=== PATIENT | female | born 1985 | race Caucasian/White ===

== ENCOUNTER 2018-04-02 01:10 | Inpatient (IN) | payer BC ==
[2018-04-02] MEDS ORDERED: Sodium Chloride 0.9% 10 ML Syringe FLUSH PRN (09:14)
[2018-04-02] MEDS ORDERED: Ondansetron 4 MG/2 ML SDV IVPUSH PRN (09:14)
[2018-04-02] MEDS ORDERED: Nalbuphine 20 MG/ML 1 ML Syringe IVPUSH PRN (09:14)
[2018-04-02] MEDS ORDERED: Lactated Ringers 1,000 ML IV SCH (09:15)
[2018-04-02] MEDS ORDERED: Oxytocin/Lactated Ringers 10 UNIT/1,000 ML BAG IV SCH ×2 (09:15→12:15)
--- NOTE | 2018-04-02 09:39 | PCM.HP ---
H&P History of Present Illness - General Date of Service: 04/02/18 Admit Problem/Dx: Admission Diagnosis/Problem Admission Diagnosis/Problem Induction of Labor Source of Information: Patient, Old Records History Limitations: Reports: No Limitations - History of Present Illness Initial Comments - Free Text/Narative: Lisy is a 32YO white female who presents today for an induction at 41 -3/7 wks gestation by LMP and U/S on 07/26/2017. Induction deemed medically necessary due to post-due status of the patient and concerns regarding large size of fetus, with intent to avoid section. U/S done on 01/15/18 showed "bilateral dilation" of renal pelvis, with recommended follow-up in 4 weeks, which patient declined. Patient blood type is B POS, antibody screen was negative. GBS NEG. GC/Chlamydia /HBV/Syphilis/HIV screens were all negative. Rubella immune. Tdap declined 01/02/2018. GDM screen declined 01/01/18 - Related Data Allergies/Adverse Reactions: Allergies Allergy/AdvReac Type Severity Reaction Status Date / Time No Known Allergies Allergy Verified 04/02/18 09:13 Home Medications: Home Meds Vits #93/Iron Fum/FA [ Formula Tablet] 1 tab PO DAILY 04/02/18 [History] Past Medical History HEENT History: Reports: None Cardiovascular History: Reports: None Respiratory History: Reports: None Gastrointestinal History: Reports: None Genitourinary History: Reports: None [employer] History: Reports: : 1 Para: 0 LMP (Approximate): - Past Surgical History HEENT Surgical History: Reports: Tonsillectomy Other Musculoskeletal Surgeries/Procedures:: right knee surgery Social & Family History - Family History Family Medical History: Noncontributory - Tobacco Use Smoking Status *Q: Never Smoker - Caffeine Use Caffeine Use: Reports: None H&P Review of Systems - Review of Systems: Review Of Systems: See Below General: Reports: No Symptoms HEENT: Reports: No Symptoms Pulmonary: Reports: No Symptoms Cardiovascular: Reports: No Symptoms Gastrointestinal: Reports: No Symptoms Genitourinary: Reports: No Symptoms Musculoskeletal: Reports: No Symptoms Skin: Reports: No Symptoms Psychiatric: Reports: No Symptoms Neurological: Reports: No Symptoms Hematologic/Lymphatic: Reports: No Symptoms Immunologic: Reports: No Symptoms Exam - Exam Exam: See Below - Vital Signs Vital Signs: Last Vital Signs Temp Pulse 88 04/02/18 08:32 Resp BP Pulse Ox Weight: 90.718 kg - Exam General: Alert, Oriented, 4 HEENT: Conjunctiva Clear, Hearing Intact, PERRLA Lungs: Clear to Auscultation, Normal Respiratory Effort Cardiovascular: Regular Rate, Regular Rhythm GI/Abdominal Exam: Normal Bowel Sounds (Female) Exam: Normal External Exam, Normal Bimanual Exam Extremities: Normal Inspection, Normal Range of Motion, Non-Tender, Normal Capillary Refill, Pedal Edema (minimal +1 edema on RLE, pt. states present even in non- state.) Skin: Warm, Dry, Intact Neuro Extensive - Mental Status: Alert, Oriented x3, Normal Mood/Affect, Normal Cognition Psychiatric: Alert, Anxious (Patient appears teary and disappointed re: induction, but understands and agrees that it is best course of action for both her and the baby's health.) - Patient Data Result Diagrams: 04/02/18 09:25 Problem List Initiated/Reviewed/Updated: No Orders Last 24hrs: Active Orders 24 hr Category Date Time Status Patient Status [ADT] Routine ADT 04/02/18 09:14 Active Activity as Tolerated [RC] PFP Care 04/02/18 09:14 Active Communication Order [RC] ASDIRECTED Care 04/02/18 09:14 Active Heart Tones [RC] ASDIRECTED Care 04/02/18 09:14 Active Non Stress Test [RC] PER UNIT ROUTINE Care 04/02/18 09:14 Active Notify Provider [RC] PFP Care 04/02/18 09:14 Active Notify Provider [RC] PRN Care 04/02/18 09:14 Active Peripheral IV Care [RC] . DIRECTED Care 04/02/18 09:14 Active Pump Management, Intrathecal [RC] ASDIRECTED Care 04/02/18 09:16 Active Urinary Catheter Assessment [RC] ASDIRECTED Care 04/02/18 09:14 Active Vital Signs [RC] PER UNIT ROUTINE Care 04/02/18 09:14 Active Regular Diet [DIET] Diet 04/02/18 Breakfast Active CBC WITH AUTO DIFF [HEME] Routine Lab 04/02/18 09:14 Ordered RAPID PLASMA REAGIN,RPR [CHEM] Routine Lab 04/02/18 09:14 Ordered Lactated Ringers [Ringers, Lactated] 1,000 ml Med 04/02/18 09:15 Ordered IV ASDIRECTED Nalbuphine [Nubain] Med 04/02/18 09:14 Ordered 10 mg IVPUSH Q2H PRN Ondansetron [Zofran] Med 04/02/18 09:14 Ordered 4 mg IVPUSH Q4H PRN Oxytocin/Lactated Ringers [Pitocin in LR 10 Units/1,000 Med 04/02/18 09:15 Ordered ML] 10 unit in 1,000 ml IV .CONTINUOUS Sodium Chloride 0.9% [Saline Flush] Med 04/02/18 09:14 Ordered 10 ml FLUSH ASDIRECTED PRN Electronic Heart Tones Ext w TOCO [WOMSER] Oth 04/02/18 09:14 Ordered Routine Electronic Heart Tones Internal [WOMSER] Per Unit Ot 04/02/18 09:14 Ordered Routine Peripheral IV Insertion Adult [OM.PC] Routine Ot 04/02/18 09:14 Ordered Resuscitation Status Routine Resus Stat 04/02/18 09:14 Ordered Medication Orders Lactated Ringer's (Ringers, Lactated) 1,000 mls @ 100 mls/hr IV ASDIRECTED ANÍBAL Oxytocin/Lactated Ringer's (Pitocin In Lr 10 Units/1,000 Ml) 10 unit in 1,000 mls @ 500 mls/hr IV .CONTINUOUS ANÍBAL Nalbuphine HCl (Nubain) 10 mg IVPUSH Q2H PRN PRN Reason: pain Ondansetron HCl (Zofran) 4 mg IVPUSH Q4H PRN PRN Reason: Nausea/Vomiting Sodium Chloride (Saline Flush) 10 ml FLUSH ASDIRECTED PRN PRN Reason: Keep Vein Open Assessment/Plan Comment:: ASSESSMENT Patient has extensive plan. Staff have counseled her on intentions to follow her wishes as closely as possible, and on plans to communicate any possible needs for deviation from the plan throughout labor. Patient is anxious and teary regarding need for induction, but understands and agrees that it is best for the well-being of both her and the fetus. Patient plans to breastfeed exclusively and the staff will support her decision. Plan to consult with pediatrics regarding previous U/S assessment of renal pelvis. PLAN 1. Induction of labor at 41-3/7 wks gestation 2. Consult pediatrics re: renal pelvis dilation and plan 3. Support patient plan to best of capability 4. Support decision
[2018-04-02] MEDS ORDERED: Lidocaine 1% 20 ML MDV INJECT ONE (20:14)
[2018-04-02] MEDS ORDERED: Lidocaine 1% 50 ML MDV INJECT ONE (20:30)
[2018-04-02] MEDS ORDERED: Lidocaine 1% 50 ML MDV ONE (23:33)
--- NOTE | 2018-04-03 01:54 | PCM.SN ---
- Free Text/Narrative Note: Delivery note: Lisy is a 32-year-old 1 now para 1001 white female at 41-4/7 weeks gestational age who was admitted yesterday for elective induction of labor or post dates. She was started on Pitocin, then had artificial rupture membranes. She did natural childbirth and had no pain medications during the course of labor. She progressed steadily and became complete at approximately 2345 hrs. on 04/02/2018. She pushed for approximately an hour and a half and delivered a viable, snider, male infant with Apgars of 8 and 9, in a direct occiput anterior position. The baby was placed on mom's abdomen. Nose and mouth were bulb suctioned baby was dried. Pitocin was started IV to facilitate increased uterine tone and decrease likelihood of bleeding. Cord blood was not obtained. The umbilical cord was allowed to pulsate until it stopped was then clamped 2 and cut by the baby's father. The patient had a vaginal and perineal laceration. She had a bilateral sulcus laceration of the vagina. All lacerations were closed with 3-0 Monocryl suture in a routine fashion. Lidocaine 1% approximately 10 mL was used for local anesthetic. She tolerated this well. The placenta delivered in a Bennie presentation, appeared intact and complete and was discarded per patient desire. Ice was placed on mom's perineum. Mother plans to breast-feed. Estimated blood loss was 100 mL. Condition: Good.
[2018-04-03] MEDS ORDERED: Witch Hazel Medicated Pads 100/Jar TOP PRN (02:34)
[2018-04-03] MEDS ORDERED: Lanolin 100% Cream 7 GM Tube TOP PRN (02:34)
[2018-04-03] MEDS ORDERED: Acetaminophen 325 MG Tab PO PRN (02:34)
[2018-04-03] MEDS ORDERED: Benzocaine/Menthol 20%-0.5% Spray 56 GM Canister TOP PRN (02:34)
[2018-04-03] MEDS ORDERED: Ibuprofen 600 MG Tab PO PRN (02:34)
--- NOTE | 2018-04-03 12:29 | PCM.SN ---
- Free Text/Narrative Note: Lisy is a 32-year-old 1 now para 1001 white female at 41-4/7 weeks gestational age who was admitted yesterday for elective induction of labor for post dates. She was started on Pitocin, then had artificial rupture membranes. She delivered a viable, snider, male with Apgars of 8 and 9, a weight of 3540 grams, (7 pounds, 10 ounces) in a direct occiput anterior position. The baby was placed on mom's abdomen. Nose and mouth were bulb suctioned baby was dried. Pitocin was started IV to facilitate increased uterine tone and decrease likelihood of bleeding. SUBJECTIVE Patient appears to be well-developed and well-nourished, and states she feels "over the imttal." On exam, patient does not have jaundice, pallor, or edema. Fundus is just below the level of the umbilicus, minimal bilateral LE edema (as seen in exam). Lungs clear to auscultation, no M/R/G. Denies cough, chest pain, SOB, dyspnea, LE pain/heat, excessive bleeding or discharge from vagina. Denies depression or anxiety. OBJECTIVE VS T: 36.4 HR: 84 BP: 117/80 O2: 97% RA ASSESSMENT Patient was breast-feeding infant and appeared in good spirits. Expresses wishes to go home as soon as infant is cleared by pediatrics. Educated patient on infant labs and why it's necessary to wait 24hr to perform them, she seemed amenable. Patient was informed regarding pain medicines safe for nursing mothers , including ibuprofen and acetaminophen, however she expressed disinterest in their use. PLAN 1. D/c home when cleared by pediatrics 2. Continue to support decision to breastfeed
--- NOTE | 2018-04-04 07:16 | PCM.DCSUM1 ---
Discharge Summary - Hospital Course Free Text/Narrative:: Lisy is a 32-year-old 1 now para 1001 white female at 41-4/7 weeks gestational age who was admitted yesterday for elective induction of labor or post dates. She was started on Pitocin, then had artificial rupture membranes. She did natural childbirth and had no pain medications during the course of labor. She progressed steadily and became complete at approximately 2345 hrs. on 04/02/2018. She pushed for approximately an hour and a half and delivered a viable, snider, male infant with Apgars of 8 and 9, in a direct occiput anterior position. The baby was placed on mom's abdomen. Nose and mouth were bulb suctioned baby was dried. Pitocin was started IV to facilitate increased uterine tone and decrease likelihood of bleeding. Cord blood was not obtained. The umbilical cord was allowed to pulsate until it stopped was then clamped 2 and cut by the baby's father. The patient had a vaginal and perineal laceration. She had a bilateral sulcus laceration of the vagina. All lacerations were closed with 3-0 Monocryl suture in a routine fashion. Lidocaine 1% approximately 10 mL was used for local anesthetic. She tolerated this well. The placenta delivered in a Bennie presentation, appeared intact and complete and was discarded per patient desire. Ice was placed on mom's perineum. Mother plans to breast-feed. Estimated blood loss was 100 mL. patient is doing well. Nursing without problems. Minimal lochia. Voiding without concerns. Patient is desiring discharge home. Condition: Good. Diagnosis: Stroke: No - Discharge Data Discharge Date: 04/04/18 Discharge Disposition: Home, Self-Care 01 Condition: Good - Patient Instructions Diet: Regular Diet as Tolerated (Nursing diet with increase calories and calcium is recommended) Activity: As Tolerated (No intercourse or tampons until bleeding resolves) Driving: May Drive Today Showering/Bathing: May Shower Notify Provider of: Fever, Increased Pain, Swelling and Redness, Nausea and/or Vomiting - Discharge Plan *PRESCRIPTION DRUG MONITORING PROGRAM REVIEWED*: No *COPY OF PRESCRIPTION DRUG MONITORING REPORT IN PATIENT MAYE: No Home Medications: Home Meds Vits #93/Iron Fum/FA [ Formula Tablet] 1 tab PO DAILY 04/02/18 [History] Acetaminophen [Tylenol] 650 mg PO Q4H PRN tablet 04/04/18 [Rx] Ibuprofen [Motrin] 600 mg PO Q4H PRN tablet 04/04/18 [Rx] Patient Handouts: Home Care Instructions for Mom, Tips for a Good Latch Referrals: Cheo José MD [Primary Care Provider] - (Return to clinicDr. [facility] weeks.) - Discharge Summary/Plan Comment DC Time >30 min.: No Discharge Summary/Plan Comment: Discharge instructions: 1. Discharge home 2. Diet, activity and follow-up discussed with patient. Recommend nursing diet with increased calories and calcium. 3. Precautions given concern increased pain, bleeding, temperature, signs/ symptoms of DVT/PE. 4. Medications per home medication was printed, discussed with and given to the patient. 5. Return to clinic-Dr. José[facility] in 2 weeks. Diagnosis: Term -delivered Condition: Good - Patient Data Vitals - Most Recent: Last Vital Signs Temp 36.7 C 04/04/18 04:36 Pulse 84 04/04/18 04:36 Resp 16 04/04/18 04:36 BP 119/64 04/04/18 04:36 Pulse Ox 97 04/04/18 04:36 Weight - Most Recent: 90.718 kg I&O - Last 24 hours: Intake & Output 04/03/18 04/04/18 04/04/18 22:59 06:59 14:59 Intake Total 320 Balance 320 Lab Results - Last 24 hrs: Laboratory Results - last 24 hr 04/02/18 04/04/18 Range/Units 09:25 01:39 WBC 20.43 H (3.98-10.04) K/mm3 RBC 3.78 L (3.98-5.22) M/mm3 Hgb 11.5 (11.2-15.7) gm/L Hct 33.7 L (34.1-44.9) % MCV 89.2 (79.4-94.8) fl MCH 30.4 (25.6-32.2) pg MCHC 34.1 (32.2-35.5) g/dl RDW Std Deviation 41.0 (36.4-46.3) fL Plt Count 208 (182-369) K/mm3 MPV 10.5 (9.4-12.3) fl RPR Non-reactive (NONREACTIVE) Med Orders - Current: Current Medications Acetaminophen (Tylenol) 650 mg PO Q4H PRN PRN Reason: mild pain or fever Benzocaine/Menthol (Dermoplast Pain Relief [place]) 0 gm TOP ASDIRECTED PRN PRN Reason: Perineal Comfort Measure Last Admin: 04/03/18 02:52 Dose: 1 can Emollient Ointment (Lansinoh Hpa) 0 gm TOP ASDIRECTED PRN PRN Reason: Sore Nipples Last Admin: 04/03/18 02:51 Dose: 1 tube Ibuprofen (Motrin) 600 mg PO Q4H PRN PRN Reason: Mild pain or fever Witch Kayla (Tucks) 1 pad TOP ASDIRECTED PRN PRN Reason: Hemorrhoid pain Last Admin: 04/03/18 02:52 Dose: 1 container Discontinued Medications Lactated Ringer's (Ringers, Lactated) 1,000 mls @ 100 mls/hr IV ASDIRECTED ANÍBAL Last Admin: 04/02/18 14:07 Dose: 100 mls/hr Oxytocin/Lactated Ringer's (Pitocin In Lr 10 Units/1,000 Ml) 10 unit in 1,000 mls @ 500 mls/hr IV .CONTINUOUS ANÍBAL Oxytocin/Lactated Ringer's (Pitocin In Lr 10 Units/1,000 Ml) 10 unit in 1,000 mls @ 12 mls/hr IV TITRATE ANÍBAL; Protocol Last Titration: 04/03/18 01:11 Dose: 750 mls/hr Lidocaine HCl (Xylocaine 1%) 20 ml INJECT ONETIME ONE Stop: 04/02/18 20:15 Last Admin: 04/03/18 01:19 Dose: Not Given Lidocaine HCl (Xylocaine 1%) 50 ml INJECT ONETIME ONE Stop: 04/02/18 20:31 Last Admin: 04/03/18 01:18 Dose: 50 ml Lidocaine HCl (Xylocaine 1%) Confirm Administered Dose 50 ml .ROUTE .STK-MED ONE Stop: 04/02/18 23:34 Last Admin: 04/03/18 01:19 Dose: Not Given Nalbuphine HCl (Nubain) 10 mg IVPUSH Q2H PRN PRN Reason: pain Ondansetron HCl (Zofran) 4 mg IVPUSH Q4H PRN PRN Reason: Nausea/Vomiting Sodium Chloride (Saline Flush) 10 ml FLUSH ASDIRECTED PRN PRN Reason: Keep Vein Open
== END 2018-04-04 11:30 | disposition home or self-care (01) | DRG 560 ==
LOC: JD.OB 01:10 → OBSVTOIN 04-03 01:10 → JD.OB 04-03 01:12
PROVIDERS: ADMIT Obstetrics & Gynecology; ATTEND Obstetrics & Gynecology
PROC: 0KQM0ZZ Repair Perineum Muscle, Open Approach (ICD-10-PCS; principal; 2018-04-03)
PROC: 3E033VJ Introduction of Other Hormone into Peripheral Vein, Percutaneous Approach (ICD-10-PCS; principal; 2018-04-03)
PROC: 10907ZC Drainage of Amniotic Fluid, Therapeutic from Products of Conception, Via Natural or Artificial Opening (ICD-10-PCS; principal; 2018-04-03)
PROC: 10E0XZZ Delivery of Products of Conception, External Approach (ICD-10-PCS; principal; 2018-04-03)
DX: O48.0 Post-term pregnancy (principal); Z3A.41 41 weeks gestation of pregnancy; O36.63X0 Maternal care for excessive fetal growth, third trimester, not applicable or unspecified; O70.1 Second degree perineal laceration during delivery; Z37.0 Single live birth
CPT/HCPCS: 36415; 59025; 59300; 59409; 85025; 85027; 86592; A9270-GY; J2590; J7120

== ENCOUNTER 2021-04-14 23:35 | Inpatient (IN) | payer BC ==
[2021-04-14] MEDS ORDERED: Calcium Carbonate 500 MG Tab.Chew PO PRN (23:43)
[2021-04-14] MEDS ORDERED: Sodium Chloride 0.9% 10 ML Syringe FLUSH PRN (23:43)
[2021-04-14] MEDS ORDERED: Acetaminophen 325 MG Tab PO PRN (23:43)
[2021-04-14] MEDS ORDERED: Ampicillin 2 GM in Sodium Chloride 0.9% 100 ML IV ONE (23:43)
[2021-04-14] MEDS ORDERED: Nalbuphine 10 MG/1 ML Vial IVPUSH PRN (23:43)
[2021-04-14] MEDS ORDERED: Ondansetron 4 MG/2 ML SDV IVPUSH PRN (23:43)
[2021-04-14] MEDS ORDERED: Oxytocin/Lactated Ringers 10 UNIT/1,000 ML BAG IV SCH (23:45)
[2021-04-14] MEDS ORDERED: Lactated Ringers 1,000 ML IV SCH (23:45)
[2021-04-15] MEDS ORDERED: Lidocaine 1% 50 ML MDV ONE (01:48)
--- NOTE | 2021-04-15 02:24 | PCM.LDHP ---
L&D History of Present Illness - General Date of Service: 04/15/21 Admit Problem/Dx: Patient Status Order with Admit Dx/Problem 04/14/21 23:43 Patient Status [ADT] Routine Admission Diagnosis/Problem Admission Diagnosis/Problem Active labor 04/15/21 02:14 Lisy is a 35-year-old 2 para 1-0-0-1 female admitted on 04/15/2021 at 41-0/7 weeks gestational age with an DEB of 04/08/2021 in active labor with advanced cervical dilation of 6 cm. Source of Information: Patient History Limitations: Reports: No Limitations - History of Present Illness Introduction:: Lisy is a 35-year-old 2 para 1-0-0-1 female admitted on 04/15/2021 at 41-0/7 weeks gestational age with an DEB of 04/08/2021 in active labor with advanced cervical dilation of 6 cm. She is carmelita every 3 to 5 minutes with contractions very strong. Patient is very uncomfortable but is desiring natural labor. Membranes initially were intact eventually ruptured spontaneously. Patient prefers very natural delivery with minimal intervention. 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 Patient had menarche at approximately age 15. Cycles q. 28 to 30 days. No control time of conception. Last menstrual period was on 07/02/2020 and given an DEB of 04/08/2021 and supported by at least 2 ultrasounds done on 09/16/2020 and 11/25/2020. Patient's previous obstetric history includes male infant born 04/03/2016 at 41 weeks gestational age after 14 hours of labor. 7 pounds 10 ounces. . Epidural used. Delivered at [facility]. Child's name is Chad. Patient denies any abnormal Pap smears or STIs. history patient was seen for first bruno visit on 09/16/2020 at 10-6/7 weeks gestational age. She was seen on a very regular basis. Patient refused weight evaluations throughout the . Blood pressures were normal throughout the and her fundal height growth was appropriate. Patient declined 1 hour GTT, was offered alternative evaluation including a CBC and a hemoglobin A1c but declined these also. Urinalysis/culture at the beginning of the showed group B strep positive status. Patient declined Tdap. Patient declined genetic testing. She plans to breast-feed. Laboratory testing in shows her blood to be be positive with negative MO screen. Hemoglobin on first visit was 13.8 g/dL and platelets were 296,000. Pap smear is normal. She is rubella immune. RPR is nonreactive. Urine culture showed group B strep positive results. Hepatitis B surface antigen and HIV assays were both negative. Gonorrhea and Chlamydia tests were both negative. Second trimester tests were declined. Later testing with RPR was declined. Allergies: None Medications: vitamins daily Past medical history: 1. 04/03/2018 as above. 2. Skin cancer removed from her scalp. Past surgical history: 1. Right knee surgery 2006 2. Tonsillectomy Family history: 1 sibling younger sister alive and well. Mother from " nonmedical stuff". Father is alive but has A. fib and is on medication. Maternal grandmother maternal grandfather deceasedcause unknown. But paternal grandmother is secondary to heart problems and had pacemaker. Paternal grandfather secondary to heart disease. Maternal aunts1 with MS and 1 with lung cancerwas a heavy smoker. Maternal uncle 1 alive and well 1 from cancertype unknown. Paternal aunts 2 alive and have hearing problems. Paternal uncle alive and has heart problems. No family history of bleeding/clotting disorders, anesthesia related problems or related concerns. Social history: Patient is . She lives in [place]. She is a stay -at-home mom. is Brian. She denies any significance alcohol, drugs or tobacco. Review of systems: In general patient has no complaints. Has had bloody show as early as this morning when seen in the clinic. Has been carmelita all day long. Has gotten more intense this afternoon and evening. Baby has been active. Skin: Negative Lungs: No infectious symptoms or shortness of breath Cardiovascular: No chest pain or exercise intolerance Breasts: No lumps, changes in size, pain, dimpling, discharge or axillary or supraclavicular concerns. GI: Negative : Changes associated with . Musculoskeletal: Negative Neurological: Negative In general the patient is well-developed, well-nourished, pleasant female of stated age in no acute distress. On last evaluation clinic on 04/14/2021 blood pressure was 114/74. Weight was refused. Fundal height growth was appropriate with fundal height at 38.5 cm. heart rate was 134. Cervix at that time was 3 cm, 90% effaced, soft, -3, mid position. Skin is warm dry without lesions. HEENT, neck and back within normal limits. Lungs are clear with good breath sounds in all lung winters. Cardiovascular exam shows regular and rhythm without murmurs. Breast exam done at first annual visit was within normal limits. It is not repeated at this time. Abdomen is gravid with last fundal height clinic 04/14/2021 at 38.5 cm.. Genital digital exam on 2020-3 cm, 90% effaced, -3 station, mid position, soft.. Extremities and neurological exam are grossly within normal limits. - Related Data Allergies/Adverse Reactions: Allergies Allergy/AdvReac Type Severity Reaction Status Date / Time No Known Allergies Allergy Verified 04/14/21 23:46 Home Medications: Home Meds Vits #93/Iron Fum/FA [ Formula Tablet] 1 tab PO DAILY 04/02/18 [History] Past Medical History - Past Health History Medical/Surgical History: Denies Medical/Surgical History HEENT History: Reports: None Cardiovascular History: Reports: None Respiratory History: Reports: None Gastrointestinal History: Reports: None Genitourinary History: Reports: None MASTER PRINTER History: Reports: - Past Surgical History HEENT Surgical History: Reports: Tonsillectomy Other Musculoskeletal Surgeries/Procedures:: right knee surgery Social & Family History - Family History Family Medical History: No Pertinent Family History - Caffeine Use Caffeine Use: Reports: None H&P Review of Systems - Review of Systems: Review Of Systems: See Below L&D Exam - Exam Exam: See Below - Vital Signs Vital Signs: Last Vital Signs Temp 37.1 C 04/14/21 23:43 Pulse 82 04/14/21 23:43 Resp 16 04/14/21 23:43 BP 131/81 04/14/21 23:43 Pulse Ox 98 04/14/21 23:43 Weight: 91.716 kg - Patient Data Lab Results Last 24 hrs: Laboratory Results - last 24 hr 04/14/21 04/14/21 04/14/21 Range/Units 23:53 23:58 23:58 WBC 14.78 H (3.98-10.04) K/mm3 RBC 4.10 (3.98-5.22) M/mm3 Hgb 12.7 (11.2-15.7) gm/dl Hct 36.8 (34.1-44.9) % MCV 89.8 (79.4-94.8) fl MCH 31.0 (25.6-32.2) pg MCHC 34.5 (32.2-35.5) g/dl RDW Std Deviation 41.2 (36.4-46.3) fL Plt Count 176 L D (182-369) K/mm3 MPV 10.6 (9.4-12.3) fl Neut % (Auto) 73.2 H (34.0-71.1) % Lymph % (Auto) 17.9 L (19.3-51.7) % [place] % (Auto) 7.6 (4.7-12.5) % Eos % (Auto) 0.6 L (0.7-5.8) Baso % (Auto) 0.1 (0.1-1.2) % Neut # (Auto) 10.81 H (1.56-6.13) K/mm3 Lymph # (Auto) 2.64 (1.18-3.74) K/mm3 [place] # (Auto) 1.13 H (0.24-0.36) K/mm3 Eos # (Auto) 0.09 (0.04-0.36) K/mm3 Baso # (Auto) 0.02 (0.01-0.08) K/mm3 RPR Non-reactive (NONREACTIVE) SARS-CoV-2 RNA (HARRISON) Positive H (NEGATIVE) Blood Type Gel Antibody Screen 04/14/21 Range/Units 23:58 WBC (3.98-10.04) K/mm3 RBC (3.98-5.22) M/mm3 Hgb (11.2-15.7) gm/dl Hct (34.1-44.9) % MCV (79.4-94.8) fl MCH (25.6-32.2) pg MCHC (32.2-35.5) g/dl RDW Std Deviation (36.4-46.3) fL Plt Count (182-369) K/mm3 MPV (9.4-12.3) fl Neut % (Auto) (34.0-71.1) % Lymph % (Auto) (19.3-51.7) % [place] % (Auto) (4.7-12.5) % Eos % (Auto) (0.7-5.8) Baso % (Auto) (0.1-1.2) % Neut # (Auto) (1.56-6.13) K/mm3 Lymph # (Auto) (1.18-3.74) K/mm3 [place] # (Auto) (0.24-0.36) K/mm3 Eos # (Auto) (0.04-0.36) K/mm3 Baso # (Auto) (0.01-0.08) K/mm3 RPR (NONREACTIVE) SARS-CoV-2 RNA (HARRISON) (NEGATIVE) Blood Type B POSITIVE Gel Antibody Screen Negative Result Diagrams: 04/14/21 23:58 - Problem List (1) 41 weeks gestation of SNOMED Code(s): 04254577 ICD Code: Z3A.41 - 41 WEEKS GESTATION OF Status: Acute Current Visit: Yes (2) Group beta Strep positive SNOMED Code(s): 013684423, 181934032 ICD Code: B95.1 - STREPTOCOCCUS, GROUP B, CAUSING DISEASES CLASSD [id number] Status: Acute Current Visit: Yes (3) Active labor at term SNOMED Code(s): 97928297 ICD Code: [id number] - Status: Acute Current Visit: Yes Problem List Initiated/Reviewed/Updated: Yes Orders Last 24hrs: Active Orders 24 hr Category Date Time Status Patient Status [ADT] Routine ADT 04/14/21 23:43 Active Activity as Tolerated [RC] PFP Care 04/14/21 23:43 Active Antiembolic Devices [RC] .Routine Care 04/14/21 23:44 Active Communication Order [RC] ASDIRECTED Care 04/14/21 23:43 Active Heart Tones [RC] ASDIRECTED Care 04/14/21 23:43 Active Notify Provider [RC] PFP Care 04/14/21 23:43 Active Notify Provider [RC] PRN Care 04/14/21 23:43 Active Peripheral IV Care [RC] . DIRECTED Care 04/14/21 23:43 Active Pump Management, Intrathecal [RC] ASDIRECTED Care 04/14/21 23:44 Active Urinary Catheter Assessment [RC] ASDIRECTED Care 04/14/21 23:43 Active VTE/DVT Education [RC] PER UNIT ROUTINE Care 04/14/21 23:44 Active Regular Diet [DIET] Diet 04/14/21 Dinner Active HEP C VIRUS AB [REF] Stat Lab 04/14/21 23:43 Received Acetaminophen [TylenoL] Med 04/14/21 23:43 Active 650 mg PO Q4H PRN Ampicillin 1 gm Med 04/15/21 04:00 Active Sodium Chloride 0.9% [Normal Saline] 100 ml IV Q4H Calcium Carbonate [Tums] Med 04/14/21 23:43 Active 1,000 mg PO Q2H PRN Lactated Ringers [Ringers, Lactated] 1,000 ml Med 04/14/21 23:45 Active IV ASDIRECTED Nalbuphine [Nubain] Med 04/14/21 23:43 Active 10 mg IVPUSH Q2H PRN Ondansetron [Zofran] Med 04/14/21 23:43 Active 4 mg IVPUSH Q4H PRN Oxytocin/Lactated Ringers [Pitocin in LR 10 Units/1,000 Med 04/14/21 23:45 Active ML] 10 unit in 1,000 ml IV .CONTINUOUS Sodium Chloride 0.9% [Saline Flush] Med 04/14/21 23:43 Active 10 ml FLUSH ASDIRECTED PRN DVT/VTE Prophylaxis Reflex [OM.PC] Routine Oth 04/14/21 23:44 Ordered Electronic Heart Tones Ext w TOCO [WOMSER] Oth 04/14/21 23:43 Ordered Routine Electronic Heart Tones Internal [WOMSER] Per Unit Oth 04/14/21 23:43 Ordered Routine Peripheral IV Insertion Adult [OM.PC] Routine Oth 04/14/21 23:43 Ordered Resuscitation Status Routine Resus Stat 04/14/21 23:43 Ordered Medication Orders Acetaminophen (Acetaminophen 325 Mg Tab) 650 mg PO Q4H PRN PRN Reason: Pain (Mild 1-3) and fever Calcium Carbonate/Glycine (Calcium Carbonate 500 Mg Tab.Chew) 1,000 mg PO Q2H PRN PRN Reason: Indigestion Ampicillin Sodium 1 gm/ Sodium (Chloride) 100 mls @ 200 mls/hr IV Q4H ANÍBAL Oxytocin/Lactated Ringer's (Pitocin In Lr 10 Units/1,000 Ml) 10 unit in 1,000 mls @ 500 mls/hr IV .CONTINUOUS ANÍBAL Lactated Ringer's (Ringers, Lactated) 1,000 mls @ 100 mls/hr IV ASDIRECTED ANÍBAL Nalbuphine HCl (Nalbuphine 10 Mg/1 Ml Vial) 10 mg IVPUSH Q2H PRN PRN Reason: Pain Ondansetron HCl (Ondansetron 4 Mg/2 Ml Sdv) 4 mg IVPUSH Q4H PRN PRN Reason: Nausea/Vomiting Sodium Chloride (Sodium Chloride 0.9% 10 Ml Syringe) 10 ml FLUSH ASDIRECTED PRN PRN Reason: Keep Vein Open Assessment/Plan Comment:: 1. Lisy is a 35-year-old 2 para 1-0-0-1 female admitted on 04/15/2021 at 41-0/7 weeks gestational age with an DEB of 04/08/2021 in active labor with advanced cervical dilation of 6 cm. Patient has had SROM with clear amniotic fluid resulting. 2. Group B strep positive statuspatient is excepting of ampicillin prophylaxis. 3. Patient plans to breast-feed. 4. Patient desires natural labordoes not want an epidural. 5. Patient is rubella immune. 6. Patient desires not to use Pitocin unless absolutely necessary. Plan: 1. Anticipate . 2. Patient desires delayed cord clamping 3. Patient desires natural labor 4. Support breast-feeding decision.
[2021-04-15] MEDS ORDERED: Lidocaine 1% 20 ML MDV INJECT ONE (02:29)
--- NOTE | 2021-04-15 02:30 | PCM.SN.2 ---
- Free Text/Narrative Note: Delivery note: Stage I: Lisy is a 35-year-old 2 para 1-0-0-1 female admitted on 04/15/2021 at 41-0/7 weeks gestational age with an DEB of 04/08/2021 in active labor with advanced cervical dilation of 6 cm. Patient eventually had SROM with resultant clear amniotic fluid. She progressed relatively rapidly to complete cervical dilation at approximately 0130 hrs. Patient had natural labor with no pain control. heart tones were reassuring throughout the labor course. Stage II: Lisy delivered a viable, snider, male infant named Stefania Colon in a right occiput anterior position at 0145 hrs. on 04/15/2021. The shoulders were delivered with gentle downward and then upward traction. The baby was completely delivered and placed on mom's abdomen. Umbilical cord was allowed to pulsate for approximately 6 minutes until no further blood transfer was noted. It was clamped and then was cut by the baby's Father Apolinar. The baby had Apgars of 8 and 9, a weight of 8# 2 oz (3680 gms), a length of 21.5 inches. Nose and mouth were bulb suctioned. Patient declined Pitocin as uterotonic to decrease likelihood of bleeding. Stage III: The placenta delivered at 0154 hrs. in a Carroll presentation, appeared intact and complete and was noted to have a marginal insertion of the cord. It was discarded per patient desire. Umbilical cord had 3 vessels. Cord blood was obtained. Estimated blood loss was 200 cc. Patient plans to breast- feed. Condition: Good Time Documentation
[2021-04-15] MEDS ORDERED: Ibuprofen 600 MG Tab PO PRN (03:21)
[2021-04-15] MEDS ORDERED: Acetaminophen 325 MG Tab PO PRN (03:21)
[2021-04-15] MEDS ORDERED: Benzocaine/Menthol 20%-0.5% Spray 78 GM Cannister TOP PRN (03:21)
[2021-04-15] MEDS ORDERED: Witch Hazel Medicated Pads 40/Jar TOP PRN (03:21)
[2021-04-15] MEDS ORDERED: Ampicillin 1 GM in Sodium Chloride 0.9% 100 ML IV SCH (04:00)
--- NOTE | 2021-04-16 07:37 | PCM.PNPP ---
- General Info Date of Service: 04/16/21 Functional Status: Reports: Pain Controlled - Review of Systems General: Reports: No Symptoms HEENT: Reports: No Symptoms Pulmonary: Reports: No Symptoms Cardiovascular: Reports: No Symptoms Gastrointestinal: Reports: No Symptoms Genitourinary: Reports: No Symptoms Musculoskeletal: Reports: No Symptoms Skin: Reports: No Symptoms Neurological: Reports: No Symptoms Psychiatric: Reports: No Symptoms - General Info Date of Service: 04/16/21 - Patient Data Vital Signs - Most Recent: Last Vital Signs Temp 37.1 C 04/16/21 04:22 Pulse 86 04/16/21 04:22 Resp 14 04/16/21 04:22 BP 109/63 04/16/21 04:22 Pulse Ox 98 04/16/21 04:22 Weight - Most Recent: 91.716 kg I&O - Last 24 Hours: Intake & Output 04/15/21 04/16/21 04/16/21 22:59 06:59 14:59 Intake Total 1280 Balance 1280 Med Orders - Current: Current Medications Acetaminophen (Acetaminophen 325 Mg Tab) 650 mg PO Q4H PRN PRN Reason: mild pain or fever Benzocaine/Menthol (Benzocaine/Menthol 20%-0.5% [place] 78 Gm Cannister) 0 gm TOP ASDIRECTED PRN PRN Reason: Perineal Comfort Measure Last Admin: 04/15/21 03:30 Dose: 1 can Documented by: Ibuprofen (Ibuprofen 600 Mg Tab) 600 mg PO Q4H PRN PRN Reason: Mild pain or fever Sodium Chloride (Sodium Chloride 0.9% 10 Ml Syringe) 10 ml FLUSH ASDIRECTED PRN PRN Reason: Keep Vein Open Witch Kayla (Witch Kayla Medicated Pads 40/Jar) 1 pad TOP ASDIRECTED PRN PRN Reason: Perineal Comfort Measure Last Admin: 04/15/21 03:30 Dose: 1 tub Documented by: Discontinued Medications Acetaminophen (Acetaminophen 325 Mg Tab) 650 mg PO Q4H PRN PRN Reason: Pain (Mild 1-3) and fever Calcium Carbonate/Glycine (Calcium Carbonate 500 Mg Tab.Chew) 1,000 mg PO Q2H PRN PRN Reason: Indigestion Ampicillin Sodium 2 gm/ Sodium (Chloride) 100 mls @ 200 mls/hr IV ONETIME ONE Stop: 04/15/21 00:12 Last Admin: 04/15/21 00:24 Dose: 200 mls/hr Documented by: Ampicillin Sodium 1 gm/ Sodium (Chloride) 100 mls @ 200 mls/hr IV Q4H ANÍBAL Oxytocin/Lactated Ringer's (Pitocin In Lr 10 Units/1,000 Ml) 10 unit in 1,000 mls @ 500 mls/hr IV .CONTINUOUS ANÍBAL Lactated Ringer's (Ringers, Lactated) 1,000 mls @ 100 mls/hr IV ASDIRECTED [facility] Lidocaine HCl (Lidocaine 1% 50 Ml Mdv) Confirm Administered Dose 50 ml .ROUTE .STK-MED ONE Stop: 04/15/21 01:49 Last Admin: 04/15/21 01:50 Dose: 50 ml Documented by: Lidocaine HCl (Lidocaine 1% 20 Ml Mdv) 50 ml INJECT ONETIME ONE Stop: 04/15/21 02:30 Last Admin: 04/15/21 02:32 Dose: Not Given Documented by: Nalbuphine HCl (Nalbuphine 10 Mg/1 Ml Vial) 10 mg IVPUSH Q2H PRN PRN Reason: Pain Ondansetron HCl (Ondansetron 4 Mg/2 Ml Sdv) 4 mg IVPUSH Q4H PRN PRN Reason: Nausea/Vomiting - Infant Interaction Support Person: - Recovery Exam Fundal Tone: Firm Fundal Level: 2 Fingerbreadths Below Umbilicus Fundal Placement: Midline Lochia Amount: Small Lochia Color: Rubra/Red Perineum Description: Other (see below) Other Perinuem Description: 2nd degree laceraton with repair Episiotomy/Laceration: Approximated Bladder Status: Voiding - Exam General: Alert, Oriented HEENT: Pupils Equal Neck: Supple Lungs: Clear to Auscultation, Normal Respiratory Effort Cardiovascular: Regular Rate, Regular Rhythm GI/Abdominal Exam: Normal Bowel Sounds, Soft, Non-Tender, No Organomegaly Extremities: Normal Inspection Skin: Warm, Dry, Intact Wound/Incisions: Healing Well Neurological: No New Focal Deficit Psy/Mental Status: Alert, Normal Affect, Normal Mood - Problem List Review Problem List Initiated/Reviewed/Updated: Yes - Assessment Assessment:: 35 year old . Doing well. Feels ready for discharge however not ready for discharge so discharge home tomorrow. - Plan Plan:: 1. Lisy is a 35-year-old 2 para 1-0-0-1 female admitted on 04/15/2021 at 41-0/7 weeks gestational age with an DEB of 04/08/2021 in active labor with advanced cervical dilation of 6 cm. Patient has had SROM with clear amniotic fluid resulting. 2. Group B strep positive statuspatient is excepting of ampicillin prophylaxis. 3. Patient plans to breast-feed. 4. Patient desires natural labordoes not want an epidural. 5. Patient is rubella immune. 6. Patient desires not to use Pitocin unless absolutely necessary. Plan: 1. Anticipate . 2. Patient desires delayed cord clamping 3. Patient desires natural labor 4. Support breast-feeding decision.
== END 2021-04-16 13:00 | disposition home or self-care (01) | DRG 560 ==
LOC: JD.OBCHECK 23:35 → JD.OB 23:38 → JD.OBCHECK 23:42 → JD.OB 23:43 → OBSVTOIN 04-15 01:45 → JD.OB 04-15 01:46
PROVIDERS: ADMIT Obstetrics & Gynecology; ATTEND Obstetrics & Gynecology
PROC: 10E0XZZ Delivery of Products of Conception, External Approach (ICD-10-PCS; principal; 2021-04-15)
PROC: 0KQM0ZZ Repair Perineum Muscle, Open Approach (ICD-10-PCS; 2021-04-15)
DX: O48.0 Post-term pregnancy (principal); Z3A.41 41 weeks gestation of pregnancy; Z37.0 Single live birth; O99.824 Streptococcus B carrier state complicating childbirth; O70.1 Second degree perineal laceration during delivery; O98.52 Other viral diseases complicating childbirth; U07.1 COVID-19
CPT/HCPCS: 36415; 59025; 59409; 85025; 85027; 86592; 86803; 86850; 86900; 86901; A9270-GY; J0290; J2001; U0002